=== PATIENT | female | born 2000 | race Hispanic/Latino ===

== ENCOUNTER → 2025-04-17 | Outpatient (CLI) | payer OTHER ==
[2025-04-17 15:09] LABS: ADD UA MICROSCOPIC YES; APPEARANCE,URINE CLOUDY (CLEAR); GLUCOSE, URINE (UA) NEGATIVE (NEGATIVE); LEUKOCYTE ESTERASE ,URINE NEGATIVE Leu/uL (NEGATIVE); NITRATE,URINE NEGATIVE (NEGATIVE); OCCULT BLOOD,URINE MODERATE (NEGATIVE)
[2025-04-17 15:10] LABS: OTHER CASTS, URINE 2 /LPF (None Seen); SQUAMOUS EPITHELIAL CELL,UR FEW /HPF (0-2); YEAST,URINE BUDDING RARE /HPF (None Seen)
--- NOTE | 2025-04-17 15:25 | EKG ---
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
--- NOTE | 2025-04-17 16:26 | HMCSR ---
APPROVED REPORT EXAM: Two-dimensional and M-mode echocardiogram with Doppler and color Doppler. INDICATION ICD: Tachycardia R00.0, N20.0 2D Dimensions RVDd3.0 cmLVEF(%)62.7 (>50%)LVED Vol(simp.)68.0 mL IVSd0.9 (0.7-1.1cm)FS(%)34 %LVES Vol(simp.)29.0 mL LVDd4.3 (3.8-5.6cm)LA (2D)4.0 (1.6-4.0cm)LVEF(%, simp.)57 % PWd1.0 (0.7-1.1cm)Ao Root(2D)2.8 (2.0-3.7cm)LA ESV INDEX (BP)19.75 mL/m2 IVSs1.1 cmLVOT diam1.8 (1.8-2.4cm) LVDs2.9 (2.5-4.0cm)IVC diam0.9 cm PWs1.3 cm M-Mode Dimensions EPSS0.3 cm LA (MM)3.9 (1.6-4.0cm) Ao Root(MM)2.6 (2.0-3.7cm) Aortic Valve AoV Vmax1.2 m/Adelso Peak GR6.2 mmHgLVOT Vmax1.1 m/s AoV VTI0.2 mAo Mean GR3.9 mmHgLVOT VTI0.18 m SUMAYA (VMAX)2.42 cm2AVA (VTI) 2.2 cm2 Mitral Valve MV E Vmax75.4 cm/sDECEL Mbbl001 ms MV A Vmax55.6 cm/sP 1/2 T41 ms E/A ratio1.4MVA (PHT)5.4 cm2 TDI E/E' Medial8.9E/E' Lateral5.1 Medial E' Peak V8.46 cm/sLateral E' Peak V14.82 cm/s Pulmonary Valve PV Vmax1.2 m/sPV VTI0.18 mPV Mean GR3.3 mmHg PV Peak GR5.5 mmHg Tricuspid Valve TR Vmax1.9 m/sRAP (EST) 3 ppYpUROK36.8 mmHg TR Peak GR15.8 mmHg Left Ventricle The left ventricle is normal size. There is normal LV segmental wall motion. There is normal left kaykay tricular wall thickness. The LVEF is > 55%. The left ventricular diastolic function is normal. Right Ventricle The right ventricle is normal size. The right ventricular systolic function is normal. Atria The left atrium size is normal. The right atrium size is normal. Aortic Valve The aortic valve is normal in structure. No aortic regurgitation is present. There is no aortic valvu lar stenosis. Mitral Valve The mitral valve is normal in structure. There is no mitral valve regurgitation noted. There is no mi tral valve stenosis. Tricuspid Valve The tricuspid valve is normal in structure. There is trace tricuspid valve regurgitation noted. Pulmonic Valve Pulmonic valve is not well visualized. There is no pulmonic valvular regurgitation. Great Vessels The aortic root is normal in size. The IVC is normal in size and collapses >50% with inspiration. Pericardium There is no pericardial effusion. Other Information Quality : Adequate Conclusion The left ventricle is normal size. The LVEF is > 55% with normal LV segmental wall motion. The left ventricular diastolic function is normal. The right ventricular systolic function is normal. Both atria are normal in size. No hemodynamically significant valvular abnormalities. There is no pericardial effusion.
== END | disposition home or self-care (01) ==
LOC: RAH 14:05
PROVIDERS: ATTEND Chiropractor
DX: R00.0 Tachycardia, unspecified (principal); N20.0 Calculus of kidney; E06.9 Thyroiditis, unspecified
CPT/HCPCS: 36415; 81001; 84481; 87086; 93005; 93306